=== PATIENT | female | born 1955 | race Caucasian/White ===

== ENCOUNTER → 2020-08-10 15:17 | Outpatient (CLI) | payer OTHER, SELFPAY ==
--- NOTE | 2020-08-10 15:20 | DI.RAD.S_ITS ---
PROCEDURE: XR HIP W PEL IF DONE RT 2V INDICATIONS: R hip pain, L knee pain TECHNIQUE: AP pelvis with lateral view(s) of the right hip(s). COMPARISON: None. FINDINGS: Bones: No fracture. Severe right hip joint degeneration with [id number] appearance, and prominent osteophyte formation, subchondral sclerosis. Moderate to severe left hip joint degeneration and lower lumbar spondylosis. Soft tissues: The visualized bowel gas pattern is normal. No suspicious soft tissue calcifications. Diffuse abdominal postsurgical changes IMPRESSION: Severe right hip joint degeneration. Additional degenerative changes as above Dictated by: Howie Torres M.D. on 08/10/2020 at 16:22 Approved by: Howie Torres M.D. on 08/10/2020 at 16:24
--- NOTE | 2020-08-10 15:20 | DI.RAD.S_ITS ---
PROCEDURE: XR KNEE LT 3V INDICATIONS: R hip pain, L knee pain TECHNIQUE: 3 views of the knee were acquired. COMPARISON: None. FINDINGS: Bones: No fracture. Scattered degenerative subchondral sclerosis and spurring. Mild narrowing of the lateral joint space Soft tissues: No joint effusion. No suspicious soft tissue calcifications. IMPRESSION: Mild left knee joint degeneration. Dictated by: Howie Torres M.D. on 08/10/2020 at 16:54 Approved by: Howie Torres M.D. on 08/10/2020 at 16:54
== END ==
PROVIDERS: PCP Registered Nurse Diabetes Educator; Referring Provider Registered Nurse Diabetes Educator; Visit Provider Registered Nurse Diabetes Educator
DX: M25.551 Pain in right hip (principal); M25.562 Pain in left knee; M16.0 Bilateral primary osteoarthritis of hip; M47.816 Spondylosis without myelopathy or radiculopathy, lumbar region; M17.12 Unilateral primary osteoarthritis, left knee
CPT/HCPCS: 73502; 73562

== ENCOUNTER → 2022-09-06 11:49 | Outpatient (CLI) | payer MEDICARE, SELFPAY ==
[2022-09-06 12:26] LABS: COVID19 -Nasal RAPID Negative (Negative)
== END ==
PROVIDERS: PCP Registered Nurse Diabetes Educator; Visit Provider Registered Nurse Diabetes Educator
DX: Z20.822 Contact with and (suspected) exposure to COVID-19 (principal)
CPT/HCPCS: 87635

== ENCOUNTER → 2024-01-30 11:52 | Outpatient (CLI) | payer MEDICARE, SELFPAY ==
--- NOTE | 2024-01-30 11:55 | DI.RAD.S_ITS ---
PROCEDURE: XR HUMERUS LT 2V INDICATIONS: eval L upper arm pain with mass effect TECHNIQUE: 2 views of the humerus were acquired. COMPARISON: None. FINDINGS: Bones: No fractures or dislocations. No osseous erosion. No periosteal reaction seen. Mild degenerative changes at the left AC joint. No suspicious bony lesions. Soft tissues: No suspicious soft tissue calcifications. IMPRESSION: No acute bony abnormality. MRI could be considered for further evaluation. Dictated by: Serjio Samson M.D. on 01/30/2024 at 16:31 Approved by: Serjio Samson M.D. on 01/30/2024 at 16:32
== END ==
PROVIDERS: PCP Registered Nurse Diabetes Educator; Referring Provider Registered Nurse Diabetes Educator; Visit Provider Registered Nurse Diabetes Educator
DX: M79.622 Pain in left upper arm (principal); R22.32 Localized swelling, mass and lump, left upper limb
CPT/HCPCS: 73060

== ENCOUNTER 2025-06-29 16:41 | Emergency (ER) | payer OTHER, SELFPAY ==
[2025-06-29 16:46] VITALS: BP 142/69; PULSE 104; RESP 16; TEMP 36.7; O2SAT 96; BMI 33.3
--- NOTE | 2025-06-29 16:50 | DI.RAD.S_ITS ---
PROCEDURE: XR HUMERUS RT 2V INDICATIONS: fall x1 wk, pain, tingling TECHNIQUE: 2 views of the humerus were acquired. COMPARISON: [facility], CR, XR HUMERUS LT 2V, 01/30/2024, 11:57. FINDINGS: Bones: No fractures or dislocations. No suspicious bony lesions. Soft tissues: No suspicious soft tissue calcifications. IMPRESSION: No acute bony abnormality. Dictated by: Lei Kwong M.D. on 06/29/2025 at 17:37 Approved by: Lei Kwong M.D. on 06/29/2025 at 17:38
--- NOTE | 2025-06-29 18:35 | PC.NURSE ---
Patient raising her voice at friend in room. she wants to leave Patient walking out of the department I am not getting any fucking help attempted to redirect patient to try and update patient on plan of care. She continued to walk out of department.
--- NOTE | 2025-06-29 18:37 | PC.NURSE ---
Pt left prior to being seen by MD. MD aware. No AVS or follow up given.
--- NOTE | 2025-06-30 12:50 | ED.UPPEXIN ---
HPI - Extremity Injury (Upper) General Chief Complaint: Extremity Injury, Upper Stated Complaint: pain in right arm wk Time Seen by Provider: 06/29/25 16:50 Source: patient Mode of arrival: Ambulatory Related Data Previous Rx's ?Medication ?Instructions ?Recorded albuterol sulfate 90 mcg/actuation 2 puff inhalation Q4-6H PRN 01/28/25 aerosol inhaler shortness of breath or wheezing #18 grams clotrimazole 1 % topical cream 1 applic topical BID yeast skin 01/28/25 rash #45 grams clotrimazole-betamethasone 1 1 applic topical BID rash 2 weeks 01/28/25 %-0.05 % topical cream #45 grams tretinoin 0.025 % topical cream 1 applic topical BEDTIME #45 grams 01/28/25 (Retin-A) Semaglutide See Rx Instructions .Route 06/29/25 .COMPLEX #9 mL amlodipine 5 mg tablet 5 mg PO DAILY #90 tabs 06/29/25 carisoprodol 350 mg tablet 350 mg PO BID #60 tabs 06/29/25 cyclosporine 0.05 % eye drops in a 1 drp EYE-BOTH BID #60 ea 06/29/25 dropperette (Restasis) epinephrine 0.3 mg/0.3 mL 0.3 mg (0.3 mL) IM ONCE PRN 06/29/25 injection, auto-injector anaphylaxis #2 ea fluoxetine 10 mg capsule 30 mg (3 x 10 mg) PO QDAY #270 caps 06/29/25 montelukast 10 mg tablet 10 mg PO QDAY #90 tabs 06/29/25 (Singulair) nystatin 100,000 unit/gram topical 1 applic topical BID #60 grams 06/29/25 powder thyroid (pork) 60 mg tablet 180 mg (3 x 60 mg) PO QDAY #270 06/29/25 ([place] Thyroid) tabs trazodone 50 mg tablet 50 mg PO HS #90 tabs 06/29/25 Allergies Allergy/AdvReac Type Severity Reaction Status Date / Time No Known Drug Allergies Allergy Verified 06/29/25 16:46 Patient History Medical History (Updated 06/29/25 @ 18:38 by Tricia Mondragon RN) Arm pain, right Intertriginous candidiasis Hereditary hemochromatosis Essential hypertension Mild persistent asthma Mild intermittent asthma Impaired fasting blood sugar Elevated LDL cholesterol level Osteoarthritis of left knee Osteoarthritis, hip, bilateral Basal cell carcinoma (BCC) of left side of nose Diverticulitis Cervical disc herniation Hayfever Trigger thumb of both hands CTS (carpal tunnel syndrome) (2005) Hx of carpal tunnel syndrome History of asthma Fibromyalgia (1991) Cough (09/14/17) Acute bacterial sinusitis (09/14/17) Acquired hypothyroidism Surgical History History of basal cell carcinoma excision History of colonoscopy (2006) History of foot surgery (1996) Status post trigger finger release (2005) Anesthesia Status post colectomy (2011) Status post hernia repair (2011) History of carpal tunnel repair (2005) Hx of hernia repair History of partial surgical removal of colon History of carpal tunnel surgery Family History Father Colon cancer Mother Heart attack Social History (Updated 12/19/17 @ 15:26 by Danica Black RN) lives independently: Yes caregiver/support person: Yes education level: high school occupational status: employed seatbelt use: always working smoke detector in home: Yes fire extinguisher in home: Yes carbon monox detector in home: Yes firearms in home: Yes Smoking Status: Never smoker alcohol intake: never substance use type: does not use during the past year weight has: remained stable well-balanced diet: daily or most days daily servings fruits/ve-4 caffeine: Yes eating out: rarely or never frequency: 5-6 times per week duration: 15-30 minutes/day additional 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 history: 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 Smoking Status: Never smoker Exam Initial Vital Signs Initial Vital Signs: Vital Signs Temperature 98.0 F 06/29/25 16:46 Pulse Rate 104 H 06/29/25 16:46 Respiratory Rate 16 06/29/25 16:46 Blood Pressure 142/69 H 06/29/25 16:46 Pulse Oximetry 96 06/29/25 16:46 Oxygen Delivery Method Room Air 06/29/25 16:46 Discharge Plan Departure Patient Disposition: Left Without Being Seen Clinical Impression: Patient left without being seen Prescriptions: No Action albuterol sulfate 90 mcg/actuation HFA aerosol inhaler 2 puff INHALATION Q4-6H PRN (Reason: shortness of breath or wheezing) Qty: 18 5RF tretinoin [Retin-A] 0.025 % cream 1 applic topical BEDTIME Qty: 45 2RF clotrimazole-betamethasone 1-0.05 % cream 1 applic topical BID 14 Days Qty: 45 1RF Rx Instructions: Use in place of plain clotrimazole for 2 weeks then resume plain clotrimazole clotrimazole 1 % cream 1 applic topical BID Qty: 45 2RF Semaglutide See Rx Instructions .ROUTE .COMPLEX Qty: 9 1RF Rx Instructions: Inject 2.4 mg SQ weekly. OK to compound with B12. amlodipine 5 mg tablet 5 mg PO DAILY Qty: 90 3RF carisoprodol 350 mg tablet 350 mg PO BID Qty: 60 5RF Restasis 0.05 % dropperette 1 drp EYE-BOTH BID Qty: 60 11RF epinephrine 0.3 mg/0.3 mL auto-injector 0.3 mg IM ONCE PRN (Reason: anaphylaxis) Qty: 2 0RF Rx Instructions: May repeat in 5 minutes with a new Epipen if no improvement fluoxetine 10 mg capsule 30 mg PO QDAY Qty: 270 3RF montelukast [Singulair] 10 mg tablet 10 mg PO QDAY Qty: 90 3RF [place] Thyroid 60 mg tablet 180 mg PO QDAY Qty: 270 3RF trazodone 50 mg tablet 50 mg PO HS Qty: 90 3RF nystatin 100,000 unit/gram powder 1 applic topical BID Qty: 60 1RF Rx Instructions: Rinse (just water or very mild soap) and dry the affected area, dust with powder, apply a soft clean cloth between the folds of skin, twice daily
== END 2025-06-29 18:40 | disposition left against medical advice (07) ==
PROVIDERS: Emergency Provider Family Medicine; PCP Registered Nurse Diabetes Educator
DX: M79.601 Pain in right arm (principal); W19.XXXA Unspecified fall, initial encounter
CPT/HCPCS: 73060; 99281